=== PATIENT | male | born 1980 | race African-American/Black ===

== ENCOUNTER 2025-01-25 20:11 | Emergency (ER) | payer OTHER, MEDICAID, SELFPAY ==
[2025-01-25] VITALS (8 sets, daily range): BP systolic 151–162; BP diastolic 99–107; PULSE 62–69; RESP 12–18; TEMP 36.6; O2SAT 95–99
--- NOTE | ~2025-01-25 | CT_ITS ---
CT HEAD NON-CONTRAST Clinical History: reed, hx afib Comparison: None Technique: Unenhanced axial images skull base to vertex Coronal, sagittal reformats CT images acquired with automatic exposure control for dose reduction DLP: 605 mGy-cm Findings: Sulci, ventricles: Unremarkable. No intracerebral hemorrhage. No evidence acute territorial infarct. No mass effect, midline shift. Bony calvarium intact. Visualized paranasal sinuses: Left sphenoid disease. Mastoid air cells: Clear. IMPRESSION: 1. No acute intracranial findings. Reviewed, dictated and finalized at location R.
--- OUTSIDE RECORDS SUMMARY | 2025-01-25 20:13 | XMS_ITS | Clinical Summary ---
Author Organization [facility] Address [facility] [place] [address] Care Team Providers Care Packager Hand Name Role Phone Rajni Galvan PA-C Primary Care Provider [phone] Allergies No known active allergies Medications amlodipine 10 MG tablet Take 10 mg by mouth daily. Active lisinopril 20 MG tablet Take 20 mg by mouth 2 (two) times a day. Active Social History Tobacco Use Types Packs/Day Years Used Date Smoking Tobacco: Never Smokeless Tobacco: Never Alcohol Use Standard Drinks/Week Comments Yes 0 (1 standard drink = 0.6 oz pur e alcohol) social AUDIT-C Answer Date Recorded Frequency of Alcohol Consumption Never 03/20/2019 Average Number of Drinks Not on file 019 Frequency of Binge Drinking Not on file 02/27 Sex and Gender Information Value Date Recorded Sex Assigned at Not on file Legal Sex Male 11:19 PM PANEL FITTER Gender Identity Not on file Sexual Orientation Not on file Last Filed Vital Signs Vital Sign Reading Time Taken Comments Blood Pressure 135/73 03/20/2019 11:10 AM PANEL FITTER Pulse 75 03/20/2019 11:10 AM PANEL FITTER Temperature 36.6 C (97.9 F) 03/20/2019 6:13 AM PANEL FITTER Respiratory Rate 16 03/20/2019 11:1 0 AM PANEL FITTER Oxygen Saturation 99% 03/20/2019 11: 10 AM PANEL FITTER Inhaled Oxygen Concentration - - Weight 127.7 kg (281 lb 9.6 oz) 03/20/2019 6:13 AM PANEL FITTER Height 190.5 cm (6' 3) 03/20/2019 6:13 AM PANEL FITTER Body Mass Index 35.2 03/20/2019 6:13 AM PANEL FITTER Plan of Treatment Health Maintenance Due Date Last Done Comments Annual Physical 1985 Hepatitis C 2000 DTaP, Tdap and Td Vaccines ( 1 - Tdap) 2001 Hepatitis B Vaccines (1 of 3 - 19+ 3-dose series) 2001 HPV Vaccines (1 - 3-dose SCD M series) 2009 COVID-19 Vaccine (1 - 2023-2 5 season) 2024 Meningococcal B Vaccine Aged Out No l onger eligible based on patient's age to complete this topic Meningococcal Vaccine Aged Out No getachew jamison eligible based on patient's age to complete this topic Pneumococcal Vaccine: Pediat rics (0 to 5 Years) and At-Risk Patients (6 to 49 Years) Aged Out No longer eligible b ased on patient's age to complete this topic RSV Immunizations Under 20 Months Aged Out No longer eligible based on patient's age to complete this topic Insurance [employer] [facility] Care Teams Packager Hand Relationship Specialty Start Date End Date Rajni Galvan PA-C PCP - General FAMILY PRACTICE 03/20/19
--- OUTSIDE RECORDS SUMMARY | 2025-01-25 20:13 | XMS_ITS | Clinical Summary ---
Author Organization [facility] Address [address] [place] [address] Care Team Providers Care Research Archaeologist Name Role Phone Jazlyn Snell MD Primary Care Provider Allergies No known active allergies Medications LORazepam (ATIVAN) 1 mg tabletIndicatio ns:anxiety Take 1 tablet (1 mg total) by mouth 3 (three) times a day as needed for anxiety ([ FOR ANXIETY/SLEEP /MUSCLE RELAXATION/ VERTIGO ]) for up to 20 days. 20 tablet 9 Active Additional Information Patient not taking.Reported on 06/30/2024 benzonatate (TESSALON) 100 mg capsuleIndicati ons:Cough Take 1 capsule (100 mg total) by mouth every 8 (eight) hours 15 capsule 2 Active Additional Information Patient not taking.Reported on 06/30/2024 al & mag hydroxide with simethicone-dip henhydramine-li docaine (MAGIC MOUTHWASH) suspension 1-1-1 Swish and swallow 10 mL every 4 (four) hours as needed (pain) 150 mL 2 Active amLODIPine (NORVASC) 10 mg tablet Take 1 tablet (10 mg total) by mouth daily Active Eliquis 5 mg tablet Take 1 tablet (5 mg total) by mouth 2 (two) times a day 5 Active dilTIAZem (CARDIZEM) 30 mg tablet Take 1 tablet (30 mg total) by mouth 3 (three) times a day 5 Active nebivoloL (BYSTOLIC) 10 mg tablet Take 1 tablet (10 mg total) by mouth daily 5 Active hydroCHLOROthia zide (HYDRODIURIL) 25 mg tablet Take 1 tablet (25 mg total) by mouth daily Active losartan (COZAAR) 100 mg tablet Take 1 tablet (100 mg total) by mouth daily Active Active Problems Problem Noted Date Diagnosed Date A-fib 05/28/2024 Surgical History Surgery Date Site/Laterality Comments ARM SURGERY Right patient states he had fracture at 12 years of age with surgery Medical History Medical History Date Comments Hypertension Atrial fibrillation (HCC) Social History Tobacco Use Types Packs/Day Years Used Date Smoking Tobacco: Never Smokeless Tobacco: Never Tobacco Cessation:Counseling Given: Not Answered AUDIT-C Answer Date Recorded Q1: How often do you have a drink containing alc ohol? Monthly or less 06/30/2024 Q2: How many drinks containi ng alcohol do you have on a typical day when you are drinking? 1 or 2 06/30/2024 Q3: How often do you have si x or more drinks on one occasion? Never 06/30/2024 Personal Safety Answer Date Recorded Have you ever been in or are you currently in a harmful physical or emotional relationship or is someone making you feel afraid or unsafe? Denies 06/30/2024 Sex and Gender Information Value Date Recorded Sex Assigned at Not on file Legal Sex Male 7:12 AM SENIOR CYTOTECHNOLOGIST Gender Identity Not on file Sexual Orientation Not on file Obstetrics History Last Filed Vital Signs Vital Sign Reading Time Taken Comments Blood Pressure 137/82 06/30/2024 2:30 PM SENIOR CYTOTECHNOLOGIST Pulse 56 06/30/2024 2:30 PM SENIOR CYTOTECHNOLOGIST Temperature 36.9 C (98.5 F) 06/30/2024 1:01 PM SENIOR CYTOTECHNOLOGIST Respiratory Rate 15 06/30/2024 2:30 PM SENIOR CYTOTECHNOLOGIST Oxygen Saturation 94% 06/30/2024 2:30 PM SENIOR CYTOTECHNOLOGIST Inhaled Oxygen Concentration - - Weight 127 kg (280 lb) 06/30/2024 1:01 PM SENIOR CYTOTECHNOLOGIST Height 190.5 cm (6' 3) 06/30/2024 1:01 PM SENIOR CYTOTECHNOLOGIST Body Mass Index 35 06/30/2024 1:01 PM SENIOR CYTOTECHNOLOGIST Plan of Treatment Health Maintenance Due Date Last Done Comments Depression Screening 1982 Hepatitis C Screening 1982 Prostate Cancer Screening-PSA 1982 Varicella Vaccines (1 of 2 - 13+ 2-dose series) 10/14/1995 Hepatitis B Screening 2000 Regular Well Visit/Exam 18-64 2000 HPV Vaccines (1 - 3-dose SCD M series) 2009 Influenza Vaccine (#1) 2024 DTaP/Tdap/Td Vaccine (2 - Td or Tdap) 10/17/2031 10/16/2021 Pneumococcal vaccine <65 Aged Out No longer eligible based on patient's age to complete this topic Insurance [facility] H[facility]/PPO Address: [address] [address] [place] [address] Care Teams Research Archaeologist Relationship Specialty Start Date End Date Jazlyn Snell MD [address] [place] [address] PCP - General Family Medicine 05/01/21
--- OUTSIDE RECORDS SUMMARY | 2025-01-25 20:13 | XMS_ITS | Patient Health Record ---
Author Organization [facility] Address [address] [place] [address] Care Team Providers Care Supervisor Drawing Name Role Phone UNKNOWN, UNKNOWN Primary Care Provider Unavailab Deborah Addison Unavailable [phone] Allergies No Known Allergies Reason For Referral No Information Medications Medication SIG (Take, Route, Fr equency, Duration) Notes Start Date End Date Status Ketoconazole 2 % Cream 1 application to affected area on bottom of feet Topical Once a day; Duration: 60 days 09/27/2024 Active Hydralazine-HCTZ Act laura Ciclopirox 8 % Solution 1 application to affected toenails daily. Every weekend, remove medicine with nail estonian remover. Topical Once a day; Duration: 120 days 09/27/2024 Active Eliquis Active dilTIAZem HCl Active Losartan Potassium A ctive Nebivolol HCl Active amLODIPine Besylate Active Social History Tobacco Use: Social History Observation Description Date Details (start date - stop date) Never Smoker NA - NA Social History Tobacco Use: Social Info Question Answer Notes Tobacco Control (Standard) Tobacco use: Nonsmoker Additional Details Category Social Info Options Details Miscellaneous: Living with: alone Drugs/Alcohol: Do you smoke marijuana? De nies Alcohol use: Social alcohol u se Vital Signs Height 76 in 09/27/2024 Weight 285 lbs 09/27/2024 BMI 34.69 kg/m2 09/27/2024 Encounters Encounter Location Date Provider Diagnosis [facility] [address] [place] [address] 09/27/2024 Deborah Joseph Dermatophytosis, nail B35.1 and Tinea pedis of both feet B35.3 Assessments Encounter Date Diagnosis (ICD Code) Assessment Notes Treatment Notes Treatment Clinical Notes Section Notes 09/27/2024 Tinea pedis of both feet (ICD-10 - B35.3) I discussed the nature and etiology of tinea pedis as well as the treatment options. Recommended treatment today consisting of topical ketoconazole cream applied QD. 09/27/2024 Dermatophytosi s, nail (ICD-10 - B35.1) Patient visit today included a review of medical history, review of systems, physical exam and discussion of exam findings, and discussion of diagnoses and treatment options. Discussed diagnosis of onychomycosis versus onychogryphosis. Treatment options including topical and/or oral medications vs not treating the infection at all were discussed. Advised fungus is contagious and can spread to other nails or family members. The patient was informed that topical treatments can be effective for mild cases. I discussed treatment with oral antifungal medication including potential risks and side effects associated with the medication. Advised treatment with oral anti-fungal medication requires a blood test to insure no pre-existing liver or kidney condition exists. Patient was advised it may take 4-6 months before significant visible improvement is apparent and 12-18 months of the medication may be necessary to resolve the infection. The patient was advised no guarantee with any treatment. All questions were answered and the patient prefers to try treatment with topical antifungal treatment. I recommended Ciclopirox, applied daily for at least 3-4 months, before expecting any significant improvement. Advised 12-18 months may be necessary for complete resolution if it seems to be working. All questions and concerns addressed. Plan Of Treatment Next Appt Details Provider Name:Deborah Joseph, 01/31/2025 08:00:00 AM, [address], [facility] [address] [place], [address], Insurance Providers Payer Name Payer Address Payer Phone Subscriber Number Group Number Insured Name Patient Relationship to Insured Coverage Start Date Coverage End Date [facility] [address] [address] [place] [address] [id number] Butch Carey Self - [facility] the [facility] [address] [address] [place] [address] [id number] Butch Carey Self - patient is the insured Medical (General) History Medical History History ICD Code Atrial fibrillation (A-fib) High blood pressure Surgical History Surgery Date(Month/Year) Cardiversion
--- OUTSIDE RECORDS SUMMARY | 2025-01-25 20:13 | XMS_ITS | Data Portability ---
[facility] Address [address] [place] [place] [address] Assessment Encounter Date Assessment Date Assessment LastModified by Organization Details LastModified Time 05/27/2016 05/27/2016 35yo AA male non-smoker presents for a follow up on hypertension. He is currently taking amlodipine 10mg 1 tablet once daily and lisinopril/HC TZ 20/25mg 2 tablets once daily. BP = 138/82. Pt is ccurrently stable and asymptomatic. Luiza APARICIO Not available 05/27/2016 16:46:06 04/22/2017 04/22/2017 35yo AA male non-smoker presents for a follow up on hypertension. He is currently taking amlodipine 10mg 1 tablet once daily and lisinopril/HC TZ 20/25mg 2 tablets once daily. Pt is ccurrently stable and asymptomatic. Not available 04/22/2017 12:32:57 12/22/2017 12/22/2017 35yo AA male non-smoker presents for a follow up on hypertension. He is currently taking amlodipine 10mg 1 tablet once daily and lisinopril/HC TZ 20/25mg 2 tablets once daily. Pt is ccurrently stable and asymptomatic. Not available 12/22/2017 12:43:54 11/03/2018 11/03/2018 35yo AA male non-smoker presents for a follow up on hypertension. He is currently taking amlodipine 10mg 1 tablet once daily and lisinopril/HC TZ 20/25mg 2 tablets once daily. Pt is currently stable and asymptomatic. Not available 11/03/2018 13:37:19 03/01/2019 03/01/2019 [employer] PARosalind Not available 03/01/2019 14:28:04 Plan of Treatment Reminders Order Date Submit Date Provider Last Modified By Organization Details Last Modified Time Details Appointments None recorded. Lab CMP, serum or plasma 2018 019 [email or web address] [facility], [address], [address], [place], [address], 9 12:16:31 lipid panel, serum 2018 JENNY [facility], [address], [address], [place], [address], 9 14:10:45 CBC w/ auto diff 2018 019 JENNY [facility], [address], [address], [place], [address], 9 14:10:45 TSH, ultra-sens itive, serum 2018 019 JENNY [facility], [address], [address], [place], [address], 9 14:10:45 CMP, serum or plasma 2017 018 JENNY [facility], [address], [address], [place], [address], 8 09:37:12 CBC w/ auto diff 2017 018 JENNY [facility], [address], [address], [place], [address], 8 09:37:11 lipid panel w/ direct LDL, serum 2017 018 JENNY [facility], [address], [address], [place], [address], 8 09:47:04 HbA1c (hemoglobi n A1c), blood 2017 [facility], [address], [address], [place], [address], 8 09:37:15 TSH, serum or plasma 2017 018 JENNY [facility], [address], [address], [place], [address], 8 09:47:05 Referral None recorded. Procedures None recorded. Surgeries None recorded. Imaging XR, shoulder, 2 or more view 2018 [email or web address] Not available 9 16:24:16 Medication Orders amlodipine 10 mg tablet 2018 [facility] [address], [place], [address], 9 14:10:40 lisinopril 20 mg-hydroch lorothiazi de 25 mg tablet 2018 [facility] [address], [place], [address], 9 14:10:43 Tylenol Extra Strength 500 mg tablet 2018 019 [facility] [address], [place], [address], 9 14:10:44 amlodipine 10 mg tablet 2018 019 [facility] [address], [place], [address], 9 13:35:20 lisinopril 20 mg-hydroch lorothiazi de 25 mg tablet 2018 019 [facility] [address], [place], [address], 9 13:35:19 amlodipine 10 mg tablet 2017 018 [facility] In [facility], [address], [place], [address], 8 12:45:19 lisinopril 20 mg-hydroch lorothiazi de 25 mg tablet 2017 018 [facility] [address] In [facility], [address], [place], [address], 8 12:45:19 amlodipine 10 mg tablet 2016 017 [facility] In [facility], [address], [place], [address], 7 12:33:05 lisinopril 20 mg-hydroch lorothiazi de 25 mg tablet 2016 017 [facility] In [facility], [address], [place], [address], 7 12:33:00 amlodipine 10 mg tablet 2016 017 [facility] [address] In [facility], [address], [place], [address], 7 16:46:37 lisinopril 20 mg-hydroch lorothiazi de 25 mg tablet 2016 017 [facility] In [facility], [address], [place], [address], 7 16:46:37 Patient TargetsNo targets recorded. Patient InstructionsNo instructions recorded. Reason for Referral None Reported. Results Created Date Observation Date Name Description Value Unit Range Abnormal Flag Note LastModifiedBy Organization Detail LastModifiedTime 02/03/20 18 02/03/2018 CBC w/ auto diff WBC 4.7 x10e3 /uL 3.4-10 .8 Not Available [facility] ([facility]) [address] [facility] [place], [address], 02/03/2018 09:37:11 02/03/20 18 02/03/2018 CBC w/ auto diff RBC 5.02 x10e6 /uL 4.14-5 .80 Not Available [facility] ([facility]) [address] [place], [address], 02/03/2018 09:37:11 02/03/20 18 02/03/2018 CBC w/ auto diff hemoglobin 12.8 g/dL 13.0-1 7.7 below low normal Not Available [facility] ([facility]) [address] [facility] [place], [address], 02/03/2018 09:37:11 02/03/20 18 02/03/2018 CBC w/ auto diff hematocrit 40.2 % 37.5-5 1.0 Not Available [facility] ([facility]) [address] [place], [address], 02/03/2018 09:37:11 02/03/20 18 02/03/2018 CBC w/ auto diff MCV 80 fL 79-97 Not Available [facility] ([facility]) [address] [facility] [place], [address], 02/03/2018 09:37:11 02/03/20 18 02/03/2018 CBC w/ auto diff MCH 25.5 pg 26.6-3 3.0 below low normal Not Available [facility] ([facility]) [address] [place], [address], 02/03/2018 09:37:11 02/03/20 18 02/03/2018 CBC w/ auto diff MCHC 31.8 g/dL 31.5-3 5.7 Not Available [facility] ([facility]) [address] [place], [address], 02/03/2018 09:37:11 02/03/20 18 02/03/2018 CBC w/ auto diff RDW 13.8 % 12.3-1 5.4 Not Available [facility] ([facility]) [address], [place], [address], 02/03/2018 09:37:11 02/03/20 18 02/03/2018 CBC w/ auto diff platelets 263 x10e3 /uL 150-37 9 Not Available [facility] ([facility]) [address], [place], [address], 02/03/2018 09:37:11 02/03/20 18 02/03/2018 CBC w/ auto diff neutrophils 38 % not estab. Not Available [facility] ([facility]) [address], [place], [address], 02/03/2018 09:37:11 02/03/20 18 02/03/2018 CBC w/ auto diff lymphs 44 % not estab. Not Available [facility] ([facility]) [address], [place], [address], 02/03/2018 09:37:11 02/03/20 18 02/03/2018 CBC w/ auto diff monocytes 14 % not estab. Not Available [facility] ([facility]) [address], [place], [address], 02/03/2018 09:37:11 02/03/20 18 02/03/2018 CBC w/ auto diff eos 3 % not estab. Not Available [facility] ([facility]) [address], [place], [address], 02/03/2018 09:37:11 02/03/20 18 02/03/2018 CBC w/ auto diff basos 1 % not estab. 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 0 Not Available [facility] ([facility]) [address], [place], [address], 02/03/2018 09:37:11 02/03/20 18 02/03/2018 CBC w/ auto diff lymphs (absolute) 2.1 x10e3 /uL 0.7-3. 1 Not Available [facility] ([facility]) [address], [place], [address], 02/03/2018 09:37:11 02/03/20 18 02/03/2018 CBC w/ auto diff monocytes(ab solute) 0.7 x10e3 /uL 0.1-0. 9 Not Available [facility] ([facility]) [address], [place], [address], 02/03/2018 09:37:11 02/03/20 18 02/03/2018 CBC w/ auto diff eos (absolute) 0.1 x10e3 /uL 0.0-0. 4 Not Available [facility] ([facility]) [address] [place], [address], 02/03/2018 09:37:11 02/03/20 18 02/03/2018 CBC w/ auto diff baso (absolute) 0.0 x10e3 /uL 0.0-0. 2 Not Available [facility] ([facility]) [address] [place], [address], 02/03/2018 09:37:11 02/03/20 18 02/03/2018 CBC w/ auto diff immature granulocytes 0 % not estab. Not Available [facility] ([facility]) [address] [place], [address], 02/03/2018 09:37:11 02/03/20 18 02/03/2018 CBC w/ auto diff immature grans (abs) 0.0 x10e3 /uL 0.0-0. 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 Not Available [facility] ([facility]) [address] [facility] [place], [address], 02/03/2018 09:37:11 02/03/20 18 02/03/2018 CMP, serum or plasm a glucose 89 mg/dL 65-99 Not Available [facility] ([facility]) [address] [facility] [place], [address], 02/03/2018 09:37:12 02/03/20 18 02/03/2018 CMP, serum or plasm a BUN 12 mg/dL 6-20 Not Available [facility] ([facility]) [address] [place], [address], 02/03/2018 09:37:12 02/03/20 18 02/03/2018 CMP, serum or plasm a creatinine 1.03 mg/dL 0.76-1 .27 Not Available [facility] ([facility]) [address] [facility] [place], [address], 02/03/2018 09:37:12 02/03/20 18 02/03/2018 CMP, serum or plasm a eGFR if nonafricn AM 94 mL/mi n/1.7 3 >59 Not Available [facility] ([facility]) [address] [place], [address], 02/03/2018 09:37:12 02/03/20 18 02/03/2018 CMP, serum or plasm a eGFR if africn AM 108 mL/mi n/1.7 3 >59 Not Available [facility] ([facility]) [address] [place], [address], 02/03/2018 09:37:12 02/03/20 18 02/03/2018 CMP, serum or plasm a BUN/creatini ne ratio 12 9-20 Not Available [facility] ([facility]) [address] [place], [address], 02/03/2018 09:37:12 02/03/20 18 02/03/2018 CMP, serum or plasm a sodium 142 mmol/ L 134-14 4 Not Available [facility] ([facility]) [address] [place], [address], 02/03/2018 09:37:12 02/03/20 18 02/03/2018 CMP, serum or plasm a potassium 4.0 mmol/ L 3.5-5. 2 Not Available [facility] ([facility]) [address] [place], [address], 02/03/2018 09:37:12 02/03/20 18 02/03/2018 CMP, serum or plasm a chloride 101 mmol/ L 96-106 Not Available [facility] ([facility]) [address] [place], [address], 02/03/2018 09:37:12 02/03/20 18 02/03/2018 CMP, serum or plasm a carbon dioxide, total 28 mmol/ L 20-29 Not Available [facility] ([facility]) [address] [place], [address], 02/03/2018 09:37:12 02/03/20 18 02/03/2018 CMP, serum or plasm a calcium 9.5 mg/dL 8.7-10 .2 Not Available [facility] ([facility]) [address] [place], [address], 02/03/2018 09:37:12 02/03/20 18 02/03/2018 CMP, serum or plasm a protein, total 7.1 g/dL 6.0-8. 5 Not Available [facility] ([facility]) [address] [place], [address], 02/03/2018 09:37:12 02/03/2002/03/2018 CMP, serum or plasm a albumin 4.6 g/dL 3.5-5. 5 Not Available [facility] ([facility]) [address] [place], [address], 02/03/2018 09:37:12 02/03/20 18 02/03/2018 CMP, serum or plasm a globulin, total 2.5 g/dL 1.5-4. 5 Not Available [facility] ([facility]) [address] [place], [address], 02/03/2018 09:37:12 02/03/2002/03/2018 CMP, serum or plasm a A/G ratio 1.8 1.2-2. 2 Not Available [facility] ([facility]) [address] [place], [address], 02/03/2018 09:37:12 02/03/2002/03/2018 CMP, serum or plasm a bilirubin, total 1.5 mg/dL 0.0-1. 2 above high normal Not Available [facility] ([facility]) [address] [place], [address], 02/03/2018 09:37:12 02/03/2002/03/2018 CMP, serum or plasm a alkaline phosphatase 61 IU/L 39-117 Not Available [facility] ([facility]) [address] [place], [address], 02/03/2018 09:37:12 02/03/20 18 02/03/2018 CMP, serum or plasm a AST (SGOT) 22 IU/L 0-40 Not Available [facility] ([facility]) [address] [place], [address], 02/03/2018 09:37:12 02/03/20 18 02/03/2018 CMP, serum or plasm a ALT (SGPT) 25 IU/L 0-44 Not Available [facility] ([facility]) [address] [place], [address], 02/03/2018 09:37:12 02/03/2002/03/2018 lipid panel , serum cholesterol, total 169 mg/dL 100-19 9 Not Available [facility] ([facility]) [address] [place] [address], [address], 02/03/2018 09:37:13 02/03/2002/03/2018 lipid panel , serum triglyceride s 49 mg/dL 0-149 Not Available [facility] ([facility]) [address] [place], [address], 02/03/2018 09:37:13 02/03/2002/03/2018 lipid panel , serum HDL cholesterol 64 mg/dL >39 Eff ectiv e Octob er 2017, HDL Joi stero l refer ence inter argelia will be peña ing to: Male Femal e 40 - 86247 9 50 - 51719 9 Not Available [facility] ([facility]) [address] [place], [address], 02/03/2018 09:37:13 02/03/2002/03/2018 lipid panel , serum VLDL cholesterol lópez 10 mg/dL 5-40 Not Available [facility] ([facility]) [address] [place] [address], [address], 02/03/2018 09:37:13 02/03/20 18 02/03/2018 lipid panel , serum LDL cholesterol calc 95 mg/dL 0-99 Not Available [facility] ([facility]) [address], [place], [address], 02/03/2018 09:37:13 02/03/20 18 02/03/2018 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 (direct) 107 mg/dL 0-99 above high normal Not Available [facility] ([facility]) [address], [place], [address], 02/03/2018 09:37:14 02/03/20 18 02/03/2018 HbA1c (hemo globi n A1c), blood hemoglobin A1C 4.7 % 4.8-5. 6 below low normal Predi abete s: 5.7 - 6.4 Diabe jacinto: >6.4 Glyce sherman contr ol for adult s with diabe jacinto: <7.0 Not Available [facility] ([facility]) [address], [place], [address], 02/03/2018 09:37:14 02/03/20 18 02/03/2018 TSH, ultra -sens itive , serum TSH 1.160 uIU/m L 0.450- 4.500 Not Available [facility] ([facility]) [address], [place], [address], 02/03/2018 09:37:15 03/11/20 19 03/11/2019 imagi ng/di agnos tic resul t No observ ation record ed. [place] [address] [place], [address], 03/12/2019 10:02:01 03/11/20 19 03/11/2019 imagi ng/di agnos tic resul t No observ ation record ed. [place] [address] [place], [address], 03/12/2019 10:03:03 Result Notes None recorded. Problems Name Problem SNOMED Code Status Onset Date Resolution Date Notes Provider Name and Address Organization Details Recorded Time Hypertensiv e disorder 50104036 Completed 11/03/2018 Rajni Galvan PA-C Attn: Darren spencer,[address] [facility], [place], [address], [facility] 9 13:37:03 Low back pain 267654315 Active Rajni Galvan PA-C Attn: Darren spencer,[address] [facility], [place], [address], [facility] 6 17:35:29 Essential hypertensio n 83644691 Active 2017 Rajni Galvan PA-C Attn: Darren spencer,[address] [facility], [place], [address], [facility] 8 12:44:06 Problem Notes None recorded. Procedures Surgical History Date Name Laterality Status Provider Name and Address Organization Details Recorded Time Knee Surgery completed Carmen Meyer MA [facility] 01/13/2015 12:08:15 Imaging Results None recorded. Procedure Notes None recorded. Medical Equipment None Reported. Allergies No known drug allergies Medications Name Sig Start Date Stop Date Status Note LastModified by Organization Details LastModified Time hydrocodone 5 mg-acetamin ophen 325 mg tablet 11/03 completed Not Available Not Available Not Available ceftriaxone 250 mg solution for injection 11/03 completed Not Available Not Available Not Available sulfamethox azole 800 mg-trimetho prim 160 mg tablet 11/03 completed Not Available Not Available Not Available methocarbam ol 750 mg tablet TAKE ONE TABLET BY MOUTH THREE TIMES A DAY 11/03 completed Not Available Not Available Not Available baclofen 10 mg tablet Take 1 tablet 3 times a day by oral route as needed. 11/03 completed Not Available Not Available Not Available amlodipine 10 mg tablet TAKE ONE TABLET BY MOUTH ONCE DAILY 2019 active Not Available Not Available Not Avai lable lidocaine 5 % topical patch APPLY 1 PATCH BY TRANSDERM AL ROUTE ONCE DAILY (MAY WEAR UP TO 12HOURS.) 11/03 completed Not Available Not Available Not Available lisinopril 20 mg-hydrochl orothiazide 25 mg tablet TAKE TWO TABLETS BY MOUTH ONCE DAILY 2019 active Not Available Not Available Not Avai lable ibuprofen 600 mg tablet Take 1 tablet 3 times a day by oral route as needed. 11/03 completed Not Available Not Available Not Available Tylenol Extra Strength 500 mg tablet Take 2 tablets twice a day by oral route. 2018 active Not Available Not Available Not Avai lable azithromyci n 500 mg tablet Take 2 tablets every day by oral route for 1 day. 11/03 completed Not Available Not Available Not Available lidocaine 5 % topical ointment Apply 1 applicati on every day by topical route as needed. 11/03 completed Not Available Not Available Not Available Vitals Date Recorded Body height Body weight Body mass index (BMI) Oxygen saturation Oxygen saturation in Arterial blood by Pulse oximetry Heart rate Body temperature Systolic And Diastolic Provider Name and Address Organization Details Last Updated DateTime 7 193.04 cm 698712. 94 g 32.9 kg/m2 98 % 98 % 92 /min 98.7 [degF] 132/84 mm[Hg] Carmen Meyer MA [facility] 7 16:30:07 Date Recorded Body height Body mass index (BMI) Body weight Body temperature Oxygen saturation Oxygen saturation in Arterial blood by Pulse oximetry Heart rate Systolic And Diastolic Provider Name and Address Organization Details Last Updated DateTime 9 193.04 cm 34.3 kg/m2 252974. 65 g 98.4 [degF] 96 % 96 % 72 /min 122/80 mm[Hg] Eugene Chavez MA [facility] 9 13:19:11 Date Recorded Body height Body mass index (BMI) Body weight Body temperature Oxygen saturation Oxygen saturation in Arterial blood by Pulse oximetry Heart rate Systolic And Diastolic Provider Name and Address Organization Details Last Updated DateTime 8 193.04 cm 34.3 kg/m2 487601. 26 g 98.6 [degF] 98 % 98 % 70 /min 140/80 mm[Hg] Eugene Chavez MA [facility] 8 12:13:52 Date Recorded Systolic And Diastolic Provider Name and Address Organization Details Last Updated DateTime 03/01/2019 150/100 mm[Hg] Rajni Galvan PA-C Attn: Accounting,[address] , [place], [address], [facility] 03/01/2019 14:03:16 Date Recorded Body height Body mass index (BMI) Body weight Heart rate Respiratory rate Body temperature Systolic And Diastolic Provider Name and Address Organization Details Last Updated DateTime 9 193.04 cm 34.7 kg/m2 624498. 83 g 70 /min 20 /min 98.5 [degF] 168/110 mm[Hg] Simone Prabhakar MA [facility] 9 13:37:41 Date Recorded Body height Body mass index (BMI) Body weight Oxygen saturation Oxygen saturation in Arterial blood by Pulse oximetry Heart rate Body temperature Systolic And Diastolic Provider Name and Address Organization Details Last Updated DateTime 7 193.04 cm 34.7 kg/m2 222130. 83 g 98 % 98 % 68 /min 98.6 [degF] 140/80 mm[Hg] Eugene Chavez MA [facility] 7 12:15:16 Social History Question Answer Notes LastModified by Organizat ion Details LastModified Time Tobacco Smoking Status Never Smoker Carmen Meyer MA null, [facility] 01/13/2015 12:08:15 What Was The Date Of Your Most Recent Tobacco Screening? 11/03/2018 Information n ot available 11/19/2018 Sex: Unknown Functional Status None recorded. Mental Status None recorded. Family History Relationship Description Onset Age of this Age Resolved Age Notes LastModified by Organization Details LastModified Time Mother Hypertensive disorder [id number] Not available 2015 11:26:35 Father Hypertensive disorder [email or web address] Not available 2015 11:26:35 Medical History Condition Response High Blood Pressure Y Past Encounters Encounter ID Performer Location Encounter Start Date Encounter Closed Date Diagnosis/Indication Diagnosis SNOMED-CT Code Diagnosis ICD10 Code Diagnosis IMO Codes Diagnosis Note [id number] Zeke Liang MD [facility] [address] [place] [address] 01/13/2015 11:12:27 01/26/2015 14:49:02 Hypertensive disorder [id number] discus sed that blood pressures most likely elevated due to not being on medication x 3 days. refilled medication . I will order routine fasting labs. patient to return to discuss results. patient refuses flu vaccine. [id number] Rajni Galvan PA-C [place] [address] [facility] [place] [address] 01/18/2015 10:08:10 01/31/2015 10:12:13 Hypertensive disorder 65558461 discus sed that blood pressures most likely elevated due to not being on medication x 3 days. refilled medication . I will order routine fasting labs. patient to return to discuss results. patient refuses flu vaccine. [id number] JUDI Harper [address] [place] [address] 02/01/2015 15:06:45 02/15/2015 13:53:19 Hypertensive disorder 59631989 I10 patient to continue medication as directed and keep track of blood pressure log. reviewed normal labs. [id number] JUDI Harper [address] [facility] [place] [address] 05/17/2015 10:58:18 05/17/2015 17:38:13 Low back pain 718657110 M54.5 discussed recurrent back pain. no relief with robaxin. patient to d/c robaxin. we can trial with baclofen 10mg tid prn, ibuprofen 600mg tid prn. High risk sexual behavior 703535524 Z72.51 discussed recent exposure. I will treat patient. send urine out for bre/chlamy adin [id number] Zeke Liang MD [facility] [address] [facility] [place] [address] 07/06/2015 16:48:33 07/12/2015 17:08:32 Low back pain 683978156 M54.5 discussed recurrent back pain. no relief with robaxin, baclofen, or ibuprofen 600mg. discussed that I could not refill vicodin. I will trial with lidocaine patches. if symptoms persist or get worse patient to return and I will order lumbar xray. reviewed positive chlamydia results. patient has been treated. no urinary symptoms. [id number] JUDI Harper [address] [place] [address] 04/25/2016 10:58:16 04/25/2016 12:44:30 Essential hypertension 50717098 I10 discussed elevated blood pressure. I will increase lisinopril /hctz 20/25 two tabs daily from one tab daily, refilled amlodipine 10mg. patient to return to see me in 4weeks for re-evaluat ion. currently stable and asymptomat ic. go to ER if in severe distress [id number] JUDI Harper [address] [place] [address] 05/27/2016 16:20:20 06/11/2016 12:19:56 Essential hypertension 63987886 I10 Pt is to continue lisinopril /hctz 20/25 two tabs daily and amlodipine 10mg.Discu ssed diet and exercise. Pt to follow up as needed or in 6 months. currently stable and asymptomat ic. go to ER if in severe distress [id number] JUDI Harper [facility] [place] [address] 04/22/2017 12:09:51 06/26/2017 16:24:21 Essential hypertension [id number] I10 Pt is to continue lisinopril /hctz 20/25 two tabs daily and amlodipine 10mg.Discu ssed diet and exercise. Pt to follow up as needed or in 6 months. currently stable and asymptomat ic. go to ER if in severe distress [id number] MD Josh Bowen [address] [place] [address] 12/22/2017 11:36:44 12/23/2017 11:14:14 Essential hypertension [id number] I10 Pt is to continue lisinopril /hctz 20/25 two tabs daily and amlodipine 10mg.Discu ssed diet and exercise. Pt to follow up as needed or in 6 months. currently stable and asymptomat ic. go to ER if in severe distressro utine labs ordered, patient to call to review results. [id number] MD Josh Bowenzeyad [address] [place] [address] 11/03/2018 12:48:20 11/04/2018 14:03:22 Essential hypertension [id number] I10 Pt is to continue lisinopril /hctz 20/25 two tabs daily and amlodipine 10mg.Discu ssed diet and exercise. [id number] MD Josh Bowenia [address] [place] [address] 03/01/2019 12:40:59 03/02/2019 13:13:43 Essential hypertension [id number] I10 BP: 168/100 recheck: 150/100 likely due to pt not taking BP medication for two days and shoulder pain. Pt is currently asymptomat ic. Currently rx amlodipine 10mg 1 tablet once daily and lisinopril /HCTZ 20/25mg 2 tablets once daily. Pt is to continue lisinopril /hctz 20/25 two tabs daily and amlodipine 10mg. Instructed pt to start checking BP at home and take lisinopril /hctz 20/25 twice a day. Discussed diet and exercise. Ordered labs Refilled pt medication s. Instructed to take medication everyday. Pain of oulder region [id number] M25.519 3 month hx of worsening left shoulder pain. Ordered shoulder x-ray. Rx tylenol extra strength 500 mg. Pt to follow up in 1 month. Health Concerns Section Related Observation LastModified by Organization Detai ls LastModified Time None Recorded Concern Status LastModified by Organization Details LastModified Time None Recorded Advance Directives Directive None Recorded Payers Insurance Date Sequence Insurance Name Policy Number Policy Trinh Covered Member ID Trinh Member ID Guarantor Name 11/03/2018 1 *SELF PAY* Rony Carey 03/01/2019 SLIDING FEE SCHEDULE - DISCOUNT Butch Carey 03/01/2019 1 *SELF PAY* Rony Carey 03/01/2019 1 [place] Butch Carey [id number] Butch Carey 03/01/2019 1 [facility] (POS II) Butch Carey [id number] Butch Carey 03/01/2019 2 [employer] [facility] (MEDICARE SUPPLEMENT) Butch Carey [id number] Butch Carey 11/03/2018 1 [place] Butch Cherry [id number] Butch Carey 03/01/2019 1 [facility] (MEDICAID HMO) [facility] Butch Cherry [id number] Butch Carye 02/19/2018 1 [facility] (MEDICAID HMO) [id number] Butch Cherry [id number] Butch Cherry Notes Date Note Type Note Provider Name and Address Organization Details Recorded Time 05/27/2016 text/html Hypertension F/UReported by PatientHPIFor associated symptoms, patient reportsno dizziness,no lightheadedness,no chest pain,no shortness of breath,no palpitations,no edema, andno calf pain with exertion. For lifestyle, patient reportsregular exerciseandlimiting/a voiding salt. For medications, patient reportstaking medications as directedandno side effects from medication. 35yo AA male non-smoker presents for a follow up on hypertension. He is currently taking amlodipine 10mg 1 tablet once daily and lisinopril/HCTZ 20/25mg 2 tablets once daily. Rajni Galvan PA-C Attn: [address] [place], [address], [facility] 05/27/2016 16:47:09 04/22/2017 text/html Hypertension F/UReported by PatientHPIFor associated symptoms, patient reportsno dizziness,no lightheadedness,no chest pain,no shortness of breath,no palpitations,no edema, andno calf pain with exertion. For lifestyle, patient reportsregular exerciseandlimiting/a voiding salt. For medications, patient reportstaking medications as directedandno side effects from medication. 35yo AA male non-smoker presents for a follow up on hypertension. He is currently taking amlodipine 10mg 1 tablet once daily and lisinopril/HCTZ 20/25mg 2 tablets once daily. Rajni Galvan PA-C Attn: Account[address] [facility], [place], [address], [facility] 04/22/2017 12:33:49 12/22/2017 text/html Hypertension F/UReported by PatientHPIFor associated symptoms, patient reportsno dizziness,no lightheadedness,no chest pain,no shortness of breath,no palpitations,no edema, andno calf pain with exertion. For lifestyle, patient reportsregular exerciseandlimiting/a voiding salt. For medications, patient reportstaking medications as directedandno side effects from medication. 35yo AA male non-smoker presents for a follow up on hypertension. He is currently taking amlodipine 10mg 1 tablet once daily and lisinopril/HCTZ 20/25mg 2 tablets once daily. Rajni Galvan PA-C Attn: Accounting[address] [facility], [place], [address], [facility] 12/22/2017 15:42:52 11/03/2018 text/html Hypertension F/UReported by PatientHPIFor associated symptoms, patient reportsno dizziness,no lightheadedness,no chest pain,no shortness of breath,no palpitations,no edema, andno calf pain with exertion. For lifestyle, patient reportsregular exerciseandlimiting/a voiding salt. For medications, patient reportstaking medications as directedandno side effects from medication. Rajni Galvan PA-C Attn: [address]ing[address] [facility], [place], [address], [facility] 11/03/2018 13:37:39 03/01/2019 text/html Hypertension F/UReported by PatientHPIFor medications, patient reportsnot taking medications as directedbut reportsno side effects from medication. For associated symptoms, patient reportsno dizziness,no lightheadedness,no chest pain,no shortness of breath,no palpitations,no edema, andno calf pain with exertion. For lifestyle, patient reportsregular exerciseandlimiting/a voiding salt.Pt has only been taking one lisinopril tablet a day. Has not taken BP meds in two days. ShoulderReported by PatientHPIFor hand dominance, patient reportsright(). For location, patient reportsleft. For quality, patient reportsaching,kd t, andworsening. For severity, patient reportsmoderate. For duration, patient reports3 months. For timing, patient reportsgradual. For context, patient reportswork injuryandoveruse(cons tant lifting at work). For aggravating factors, patient reportsliftingandweig htbearing. For associated symptoms, patient reportsno numbness,no tingling,no swelling,no redness,no warmth,no popping/clicking, andno radiation down arm. For work related, patient reportsyes. For working, patient reportsmodified duty(self modified work. pt works in [employer]). For alleviating factors, (has tried no meds). 38 yo AA male non-smoker presents for a follow up on hypertension and shoulder pain. opthamology appt march 2019 Rajni Galvan PA-C Attn: [address] [place], [address], [facility] 03/02/2019 10:27:03
--- NOTE | 2025-01-25 22:42 | PC.NURSE ---
pt to ct via stretcher at this time. nad noted.
--- NOTE | 2025-01-25 23:04 | ECG_ITS ---
Test Date: 2025-01-25 23:20:06 Measurements Intervals [place] Rate: 54 P: 50 WV: 207 QRS: 41 QRSD: 106 T: 9 QT: 473 QTc: 452 Interpretive Statements SINUS BRADYCARDIA WITH FIRST DEGREE AV BLOCK DELAYED PRECORDIAL R/S TRANSITION BORDERLINE ECG Compared to ECG 05/22/2024 12:19:56 Atrial fibrillation no longer present Electronically Signed On 01-26-2025 06:19:29 CDT by Marlon Samuel D.O.
[2025-01-25 23:21] LABS: Hematocrit 43.9 % (42.0-52.0); Hemoglobin 13.3 g/dL (14.0-18.0); Immature Granulocyte Percent A 0.2 % (0-0.5); Lymphocytes Absolute Auto 1.59 K/mm3 (0.9-3.2); Mean Corpuscular HGB Conc 30.3 g/dl (32-36); Mean Corpuscular Hemoglobin 24.2 pg (26-34); Mean Corpuscular Volume 79.8 fl (80-100); Nucleated Red Blood Cells Absolute Auto 0.000 K/mm3 (0.0-0.012); Nucleated Red Blood Cells Perc 0.0 % (0.0-0.2); Platelet Count Result 262 k/mm3 (150-375); Red Blood Count 5.50 M/mm3 (4.6-6.20); White Blood Count 5.0 K/mm3 (4.5-10.0)
--- NOTE | 2025-01-25 23:27 | ED.HA ---
HPI - Headache General Chief Complaint: Headache Stated Complaint: headache Time Seen by Provider: 01/25/25 22:36 History of Present Illness HPI Narrative: 44-year-old male presenting to the emergency department with a headache. Patient has a history of atrial fibrillation on Eliquis. He presents to the emergency department with a sudden onset headache that occurred about 30 minutes prior to his arrival. Was located on the right side of his head and going down his neck. Not doing anything exertional strenuous and he was just walking around. Did not reach maximal intensity immediately and gradually got worse prior to resolving just upon arrival to the emergency department. Denies any headache or neck pain during my assessment. States he knows that his blood pressure was slightly high and got concerned especially with his cardiac history. Denies any chest pain shortness a breath. No headache at this time. No neck pain or neurological complaints. No loss of consciousness or syncope. No traumatic injuries. Ambulates with a steady gait. Related Data Home Medications ?Medication ?Instructions ?Recorded ?Confirmed ?Last Taken ?Type hydrochlorothiazide 25 mg tablet 25 mg PO DAILY 05/22/24 05/22/24 05/21/24 History losartan 100 mg tablet 100 mg PO DAILY 05/22/24 05/22/24 05/21/24 History Allergies Allergy/AdvReac Type Severity Reaction Status Date / Time No Known Allergies Allergy Verified 05/21/24 15:25 Review of Systems Review of Systems: As reviewed above in HPI PMFSH Family History Family History Mother Brain aneurysm Hypertension Sibling Thyroid disorder Father Hypertension Social History Social History Smoking status: Never smoker Alcohol intake: current Drinks per week: 1 Substance use: never Substance use type: does not use Do You Feel Safe in your Home?: Yes Lack of Transportation: No Lack of Food: Never True Current Housing: Decline to Answer Concerned About Future Housing: No Difficulty Paying Gas/Electric Bills: No Difficulty Paying for Meds: No Currently Unemployed: No Education: High School Diploma/GED Difficulty w/ Childcare or Family Care: No Spiritual care concerns: No Exam Narrative: GENERAL: [Well-appearing, well-nourished, and in no acute distress.] HEAD: [Normocephalic, atraumatic.] EYES: [PERRLA and EOMI.] ENT: Nares clear, no rhinorrhea or epistaxis. Mucous membranes moist. NECK: Supple. CHEST: [Clear to auscultation. No respiratory distress.] HEART: [Regular rate and rhythm]. No murmur heard. [Normal peripheral pulses.] ABDOMEN: [Soft, nondistended], [nontender], [No rigidity or guarding] EXTREMITIES: Normal range of motion. [No edema.] SKIN: Warm, dry, no rash. NEURO: [No focal deficits]. Alert and oriented [x3.] PSYCH: [Normal mood and affect.] Course Vital Signs Vital signs: Vital Signs Temperature 36.6 C 01/25/25 20:17 Pulse Rate 69 01/25/25 20:17 Respiratory Rate 18 01/25/25 20:17 Blood Pressure 162/104 H 01/25/25 20:17 Pulse Oximetry 99 01/25/25 20:17 Oxygen Delivery Room Air 01/25/25 20:17 Temperature 36.8 C 01/26/25 02:50 Pulse Rate 68 01/26/25 02:50 Respiratory Rate 16 01/26/25 02:50 Blood Pressure 137/109 H 01/26/25 02:50 Pulse Oximetry 97 01/26/25 02:50 Oxygen Delivery Room Air 01/25/25 20:17 MDM - Headache MDM Narrative Medical decision making narrative: 44-year-old male presenting to the emergency department with a headache. Patient has a history of atrial fibrillation on Eliquis. He presents to the emergency department with a sudden onset headache that occurred about 30 minutes prior to his arrival. Was located on the right side of his head and going down his neck. Not doing anything exertional strenuous and he was just walking around. Did not reach maximal intensity immediately and gradually got worse prior to resolving just upon arrival to the emergency department. Denies any headache or neck pain during my assessment. States he knows that his blood pressure was slightly high and got concerned especially with his cardiac history. Denies any chest pain shortness a breath. No headache at this time. No neck pain or neurological complaints. No loss of consciousness or syncope. No traumatic injuries. Ambulates with a steady gait. Patient has no headache at this time but given his history of blood thinner use with new onset headache any states he does not get headaches or migraines will obtain a CT of the head to rule out intracranial hemorrhage. Lack of any neurological findings or ongoing headache is reassuring. Basic laboratory studies and EKG obtained given his cardiac history. Blood pressure came down with any interventions and just placing him into a monitored room. Still mildly hypertensive but not severe range. No tachycardia, tachypnea or fever. Normal neurological examination and physical examination otherwise. Likely plan for safe discharge home upon completion of workup if unremarkable findings. Lab show hypokalemia at 2.8. EKG shows sinus bradycardia but no signs of AFib or ectopy. Given oral potassium replacement 80 mEq. Discussed this with the patient he states he has a history of some low potassium issues. Encouraged him to follow-up with his account executive sales representative on Friday and here he has an appointment today. Told him to discuss the potassium is that can be a trigger for his AFib because worsening symptoms if he has it. Will defer to his primary team and account executive sales representative regarding starting potassium supplementation. His remaining workup was unremarkable. A unrelated findings including a bilirubin of 2.5 which is also chronic per review of the EMR with normal LFTs otherwise. Normal electrolytes otherwise normal kidney function. Normal glucose. CT head shows no bleeding or stroke. Patient remained asymptomatic during repeat evaluations. Blood pressure better without any intervention. Safe for discharge at this time. Has a follow-up on Friday. Medical Records Attestation: I reviewed the patient's medical records. Lab Data Attestation: I reviewed the patient's lab results. 01/25/25 23:15 01/25/25 23:15 Labs: Lab Results 01/25/25 Range/Units 23:15 WBC 5.0 (4.5-10.0) K/mm3 RBC 5.50 (4.6-6.20) M/mm3 Hgb 13.3 L (14.0-18.0) g/dL Hct 43.9 (42.0-52.0) % MCV 79.8 L (80-100) fl MCH 24.2 L (26-34) pg MCHC 30.3 L (32-36) g/dl RDW 12.6 (11.5-14.5) % Plt Count 262 (150-375) k/mm3 MPV 9.9 (7.4-10.4) fl Immature Gran % (Auto) 0.2 (0-0.5) % Neut % (Auto) 51.2 (45.5-73.1) % Lymph % (Auto) 31.8 (18.3-44.2) % [place] % (Auto) 13.0 H (2.6-8.5) % Eos % (Auto) 3.0 (0-4.4) % Baso % (Auto) 0.8 (0.2-1.2) % Lymph # (Auto) 1.59 (0.9-3.2) K/mm3 [place] # (Auto) 0.7 H (0.1-0.6) K/mm3 Eos # (Auto) 0.2 (0-0.3) K/mm3 Baso # (Auto) 0.0 (0.0-0.1) K/mm3 Abs Immat Gran (auto) 0.01 (0.00-0.031) K/mm3 Absolute Neuts (auto) 2.6 (1.3-6.7) K/mm3 Absolute Nucleated RBC 0.000 (0.0-0.012) K/mm3 Nucleated RBC % 0.0 (0.0-0.2) % Sodium 136 L (137-145) mmol/L Potassium 2.8 L* (3.4-5.0) mmol/L Chloride 100 (98-107) mmol/L Carbon Dioxide 29 (22-30) mmol/L Anion Gap 7 (4-12) mmol/L BUN 10 (9-20) mg/dL Creatinine 0.96 (0.7-1.3) mg/dL Estim Creat Clear Calc 132 ml/min Estimated GFR > 60 (59 - ) Glucose 110 (65-110) mg/dL Calcium 8.8 (8.4-10.2) mg/dL Total Bilirubin 2.5 H (0.2-1.3) mg/dL AST 33 (17-59) U/L ALT 40 (6-50) U/L Alkaline Phosphatase 66 (38-126) U/L Total Protein 7.6 (6.3-8.2) g/dL Albumin 4.3 (3.5-5.1) g/dL Imaging Data Attestation: I personally reviewed and interpreted this imaging study as follows: My impression: No bleeding or stroke. No mass effect or edema. No fracture. Discharge Plan Discharge Clinical Impression: Headache, Hypokalemia, History of atrial fibrillation Patient Disposition: Home Condition: Stable Instructions: Antibiotic Form, Hypokalemia (ED) Additional Instructions: Potassium was low at 2.8 today. We did give fever replenishment to get this back to a normal range. Follow-up with your account executive sales representative this Friday to discuss this and even starting a potassium supplement if needed. Return with any emergent or new concerns or any other issues. Patient Language: Kiswahili Prescriptions: No Action losartan 100 mg tablet 100 mg PO DAILY hydrochlorothiazide 25 mg tablet 25 mg PO DAILY Follow-up/Referrals: PHYSICIAN,LIVESTOCK INSPECTOR [Primary Care Provider, Internal Medicine] Time of Disposition: 02:42
[2025-01-25 23:34] LABS: Alanine Aminotransferase 40 U/L (6-50); Albumin Level 4.3 g/dL (3.5-5.1); Alkaline Phosphatase 66 U/L (38-126); Anion Gap 7 mmol/L (4-12); Aspartate Amino Transferase 33 U/L (17-59); Bilirubin,Total 2.5 mg/dL (0.2-1.3); Blood Urea Nitrogen 10 mg/dL (9-20); Calcium 8.8 mg/dL (8.4-10.2); Carbon Dioxide 29 mmol/L (22-30); Chloride 100 mmol/L (98-107); Estimated CRCL calculation 132 ml/min; Estimated Glomerular Filt Rate > 60; Glucose 110 mg/dL (65-110); Potassium 2.8 mmol/L (3.4-5.0); Sodium 136 mmol/L (137-145); Total Protein 7.6 g/dL (6.3-8.2)
[2025-01-26] MEDS: POTASSIUM CHLORIDE 20 MEQ ER TABLET 40 MEQ PO (00:42)
[2025-01-26] MEDS: POTASSIUM CHLORIDE 20 MEQ PACKET (FOR LIQUID) 40 MEQ PO (00:42)
[2025-01-26 02:50] VITALS: BP 137/109; PULSE 68; RESP 16; TEMP 36.8; O2SAT 97
== END 2025-01-26 02:51 | disposition home or self-care (01) ==
PROVIDERS: Emergency Provider Student in an Organized Health Care Education/Training Program
DX: R51.9 Headache, unspecified (principal); E87.6 Hypokalemia; I48.91 Unspecified atrial fibrillation; Z79.01 Long term (current) use of anticoagulants; R00.1 Bradycardia, unspecified; I44.0 Atrioventricular block, first degree
CPT/HCPCS: 36415; 70450; 80053; 85025; 93005; 99284; A9270